=== PATIENT | female | born 1985 | race Caucasian/White ===

== ENCOUNTER 2017-02-26 00:10 | Inpatient (IN) | payer MEDICAID, SELFPAY ==
[2017-02-26] MEDS ORDERED: Carboprost Tromethamine 250 MCG/1 ML Amp IM PRN (00:16)
[2017-02-26] MEDS ORDERED: Methylergonovine 0.2 MG/1 ML Amp IM PRN (00:16)
[2017-02-26] MEDS ORDERED: Lidocaine 1% 30 ML SDV INJECT PRN (00:16)
[2017-02-26] MEDS ORDERED: fentaNYL 100 MCG/2 ML SDV IVPUSH PRN (00:16)
[2017-02-26] MEDS ORDERED: Acetaminophen 325 MG Tab PO PRN (00:16)
[2017-02-26] MEDS ORDERED: Ondansetron 4 MG/2 ML SDV IV PRN (00:16)
[2017-02-26] MEDS ORDERED: Misoprostol 400 MCG (4 X 100 MCG TAB) RECTAL PRN (00:16)
[2017-02-26] MEDS ORDERED: Sodium Chloride 0.9% 10 ML Syringe FLUSH PRN ×3 (00:16→11:33)
[2017-02-26] MEDS ORDERED: Lactated Ringers 500 ML IV ONE (00:16)
[2017-02-26] MEDS ORDERED: Misoprostol 25 MCG (1/4 of 100 MCG) Tab VAG PRN (00:20)
[2017-02-26] MEDS ORDERED: Oxytocin/Normal Saline 30 UNIT/500 ML BAG IV SCH ×2 (00:30→07:15)
[2017-02-26] MEDS ORDERED: Calcium Carbonate 500 MG Tab.Chew PO PRN (01:38)
[2017-02-26] MEDS: Lactated Ringers 1,000 ML IV SCH ×4 (05:05→07:27)
[2017-02-26] MEDS ORDERED: fentaNYL 100 MCG/2 ML SDV ONE (05:32)
--- NOTE | 2017-02-26 06:09 | PCM.PRNOTE ---
- Free Text/Narrative Note: Called to place intrathecal for pain management in this laboring patient. After consent obtained, and monitors on, proceeded. With patient in sitting position, sterile prep/drape. Skin wheal at L3-4 with 1 % lidocaine. LP X 1 at L3-4 with 25 gauge pencan spinal needle via 20 gauge introducer. Positive free flowing clear CSF, but initially unable to aspirate CSF. No heme, no paresthesia. After advancing spinal needle slightly, able to aspirate, so injected 20 mcg Sufenta, plus 30 mcg of Fentanyl plus 6 mg (0.8 ml ) mpf, hyperbaric spinal 0.75% marcaine, plus 0.4ml preservative free normal saline with epinephrine wash. SBP remained stable and FHT's remained stable. Pt reported no discomfort with subsequent contractions.
--- NOTE | 2017-02-26 06:38 | PCM.LDHP ---
L&D History of Present Illness - General Date of Service: 02/26/17 Admit Problem/Dx: Patient Status Order with Admit Dx/Problem 02/26/17 00:16 Patient Status [ADT] Routine Admission Diagnosis/Problem Admission Diagnosis/Problem care Source of Information: Patient - History of Present Illness Introduction:: 32-year-old at 39w1d presents for elective induction of labor. Patient has to rock picker some of her children on 02/28/17 in the morning and has no one to watch her children. She transferred care to [facility] on 02/10/17. She previously received her care at [facility] in [place], [place]. Her has been uncomplicated. She denies any complications with her previous pregnancies with the exception of a precipitous delivery with her 5th delivery. She has no concerns today. Baby has been active. Some [place] contractions but nothing regular. No vaginal bleeding or leaking of fluid. - Related Data Allergies/Adverse Reactions: Allergies Allergy/AdvReac Type Severity Reaction Status Date / Time desipramine Allergy Other Verified 02/26/17 01:37 Past Medical History - Past Health History Medical/Surgical History: Denies Medical/Surgical History HEENT History: Reports: Other (See Below) Other HEENT History: myopia Gastrointestinal History: Reports: Other (See Below) Other Gastrointestinal History: bad heartburn EKG TECH History: Reports: Polycystic Ovaries Psychiatric History: Reports: Anxiety, Depression, Other (See Below) Other Psychiatric History: borderline personality disorder neurotic excoriations Hematologic History: Reports: Other (See Below) Other Hematologic History: platelets currenlty 112 Other Immunologic History: had chicken pox - Infectious Disease History Infectious Disease History: Reports: Chicken Pox Social & Family History - Family History Family Medical History: Noncontributory Cardiac: Reports: Hypertension (Mother/Father/Brother) : Reports: Other (See Below) (Breast cancer--Maternal grandmother) Neurological: Reports: CVA (Paternal grandmother) Psychiatric: Reports: Depression (Brother) - Tobacco Use Smoking Status *Q: Former Smoker Used Tobacco, but Quit: No Second Hand Smoke Exposure: No - Caffeine Use Caffeine Use: Reports: None - Recreational Drug Use Recreational Drug Use: No H&P Review of Systems - Review of Systems: Review Of Systems: See Below General: Reports: No Symptoms HEENT: Reports: No Symptoms Pulmonary: Reports: No Symptoms Cardiovascular: Reports: No Symptoms Gastrointestinal: Reports: No Symptoms Genitourinary: Reports: No Symptoms Musculoskeletal: Reports: No Symptoms L&D Exam - Exam Exam: See Below - Vital Signs Vital Signs: Last Vital Signs Temp 36.9 C 02/26/17 00:29 Pulse 100 02/26/17 00:30 Resp 18 02/26/17 00:29 BP 136/86 02/26/17 00:30 Pulse Ox Weight: 54.431 kg - OB Specific Contraction Duration (sec): 50-100 Contraction Frequency (min): irregular Contraction Intensity: denies ctn Heart Tones per Min: 130 Heart Rate (FHR) Variability: Moderate (6-25 bmp) Presentation: Vertex - Howard Score Howard Score Cervix Position: Midposition Howard Score Consistency: Soft Howard Score Effacement: 31-50% Howard Score Dilation: 1-2 cm Howard Score 's Station: -2 Howard Score Total: 6 - Exam General: Alert, Oriented HEENT: Mucosa Moist & [place] Lungs: Clear to Auscultation, Normal Respiratory Effort Cardiovascular: Regular Rate, Regular Rhythm. No: Systolic Murmur, Diastolic Murmur Abdomen: Normal Bowel Sounds Extremities: Normal Inspection. No: Edema Skin: Warm, Dry, Intact - Patient Data Lab Results last 24 hrs: Laboratory Results - last 24 hr 02/26/17 02/26/17 Range/Units 00:45 01:40 WBC 8.0 (5.0-10.0) 10^3/uL RBC 3.50 L (4.2-5.4) 10^6/uL Hgb 10.8 L (12.0-16.0) g/dL Hct 32.9 L (37.0-47.0) % MCV 94.0 (80-100) fL MCH 30.9 (27.0-34.0) pg MCHC 32.8 L (33.0-35.0) g/dL Plt Count 112 L (150-450) 10^3/uL Urine Opiates Screen Negative (NEGATIVE) Ur Oxycodone Screen Negative (NEGATIVE) Urine Methadone Screen Negative (NEGATIVE) Ur Barbiturates Screen Negative (NEGATIVE) U Tricyclic Antidepress Negative (NEGATIVE) Ur Phencyclidine Scrn Negative (NEGATIVE) Ur Amphetamine Screen Negative (NEGATIVE) U Methamphetamines Scrn Negative (NEGATIVE) Urine MDMA Screen Negative (NEGATIVE) U Benzodiazepines Scrn Negative (NEGATIVE) Urine Cocaine Screen Negative (NEGATIVE) U Marijuana (THC) Screen Negative (NEGATIVE) Result Diagrams: 02/26/17 00:45 - Problem List (1) care in third trimester SNOMED Code(s): 841804985, 35330845, 11945624, 386105189, 615291140 ICD Code: Z34.93 - ENCNTR FOR SUPRVSN OF NORMAL PREG, UNSP, THIRD TRIMESTER Status: Acute Current Visit: Yes (2) Multigravida in third trimester SNOMED Code(s): 208976844, 829620651 ICD Code: Z34.83 - ENCOUNTER FOR SUPRVSN OF NORMAL , THIRD TRIMESTER Status: Acute Current Visit: Yes (3) Thrombocytopenia affecting SNOMED Code(s): 706808102 ICD Code: O99.119 - OTH DIS OF BLD/BLD-FORM ORG/IMMUN MECHNSM COMP PREG,UNSP TRI; D69.6 - THROMBOCYTOPENIA, UNSPECIFIED Status: Acute Current Visit: Yes Problem List Initiated/Reviewed/Updated: Yes Orders Last 24hrs: Active Orders 24 hr Category Date Time Status Communication Order [RC] ASDIRECTED Care 02/26/17 00:16 Active Communication Order [RC] ASDIRECTED Care 02/26/17 00:20 Active Communication Order [RC] ASDIRECTED Care 02/26/17 00:20 Active Communication Order [RC] ASDIRECTED Care 02/26/17 00:20 Active Communication Order [RC] ASDIRECTED Care 02/26/17 00:20 Active Heart Tones [RC] PER UNIT ROUTINE Care 02/26/17 00:16 Active Monitoring [RC] PER UNIT ROUTINE Care 02/26/17 00:20 Active Notify Provider Vital Signs OB [RC] ASDIRECTED Care 02/26/17 00:16 Active Notify Provider [RC] PRN Care 02/26/17 00:16 Active Notify Provider [RC] PRN Care 02/26/17 00:20 Active Notify Provider [RC] PRN Care 02/26/17 00:20 Active Notify Provider [RC] STAT Care 02/26/17 00:20 Active Peripheral IV Care [RC] . DIRECTED Care 02/26/17 00:21 Active Pump Management, Intrathecal [RC] ASDIRECTED Care 02/26/17 00:16 Active Up ad Katiana [RC] ASDIRECTED Care 02/26/17 00:16 Active Vaginal Exam [RC] PRN Care 02/26/17 00:20 Active Vital Signs [RC] PER UNIT ROUTINE Care 02/26/17 00:16 Active Clear Liquid Diet [DIET] Diet 02/26/17 Breakfast Active Acetaminophen [Tylenol] Med 02/26/17 00:16 Active 650 mg PO Q4H PRN Calcium Carbonate [Tums] Med 02/26/17 01:38 Active 500 mg PO Q2H PRN Carboprost Tromethamine [Hemabate DS] Med 02/26/17 00:16 Active 250 mcg IM ASDIRECTED PRN Lactated Ringers [Ringers, Lactated] 1,000 ml Med 02/26/17 00:30 Active IV ASDIRECTED Lidocaine 1% [Xylocaine-MPF 1%] Med 02/26/17 00:16 Active 10 ml INJECT ASDIRECTED PRN Methylergonovine [Methergine] Med 02/26/17 00:16 Active 0.2 mg IM ASDIRECTED PRN Misoprostol [Cytotec] Med 02/26/17 00:20 Active 25 mcg VAG Q4H PRN Misoprostol [Cytotec] Med 02/26/17 00:16 Active 800 mcg RECTAL ASDIRECTED PRN Ondansetron [Zofran] Med 02/26/17 00:16 Active 4 mg IV Q4H PRN Oxytocin/Normal Saline [Pitocin in NS 30 UNIT/500 ML] Med 02/26/17 00:30 Active 30 unit in 500 ml IV TITRATE Sodium Chloride 0.9% [Saline Flush] Med 02/26/17 00:16 Active 10 ml FLUSH ASDIRECTED PRN Sodium Chloride 0.9% [Saline Flush] Med 02/26/17 00:20 Active 10 ml FLUSH ASDIRECTED PRN fentaNYL [Sublimaze] Med 02/26/17 00:16 Active 50 mcg IVPUSH Q1H PRN Peripheral IV Insertion Adult [OM.PC] Urgent Oth 02/26/17 00:20 Ordered Saline Lock Insert [OM.PC] Routine Oth 02/26/17 00:16 Ordered Resuscitation Status Routine Resus Stat 02/26/17 00:16 Ordered Medication Orders Acetaminophen (Tylenol) 650 mg PO Q4H PRN PRN Reason: Pain (Mild 1-3) and fever Calcium Carbonate/Glycine (Tums) 500 mg PO Q2H PRN PRN Reason: Heartburn Last Admin: 02/26/17 01:50 Dose: 500 mg Carboprost Tromethamine (Hemabate Ds) 250 mcg IM ASDIRECTED PRN PRN Reason: HEMORRHAGE Fentanyl (Sublimaze) 50 mcg IVPUSH Q1H PRN PRN Reason: Pain (moderate 4-6) Lactated Ringer's (Ringers, Lactated) 1,000 mls @ 125 mls/hr IV ASDIRECTED ANDREI Oxytocin/Sodium Chloride (Pitocin In Ns 30 Unit/500 Ml) 30 unit in 500 mls @ 2 mls/hr IV TITRATE ANDREI; 2 MUNITS/MIN PRN Reason: Protocol Lidocaine HCl (Xylocaine-Mpf 1%) 10 ml INJECT ASDIRECTED PRN PRN Reason: Perineal Repair Methylergonovine Maleate (Methergine) 0.2 mg IM ASDIRECTED PRN PRN Reason: Hemorrhage Misoprostol (Cytotec) 800 mcg RECTAL ASDIRECTED PRN PRN Reason: Hemorrhage Misoprostol (Cytotec) 25 mcg VAG Q4H PRN PRN Reason: cervical ripening Stop: 02/27/17 04:21 Last Admin: 02/26/17 01:54 Dose: 25 mcg Ondansetron HCl (Zofran) 4 mg IV Q4H PRN PRN Reason: Nausea/Vomiting Sodium Chloride (Saline Flush) 10 ml FLUSH ASDIRECTED PRN PRN Reason: Keep Vein Open Sodium Chloride (Saline Flush) 10 ml FLUSH ASDIRECTED PRN PRN Reason: Keep Vein Open Assessment/Plan Comment:: 32-year-old at 39w1d presenting for induction of labor 1. Admit to L&D 2. Cytotec for cervical ripening, followed by pitocin if needed 3. AROM when able 4. Anticipate vaginal delivery. Expectant management. Mary Mcmillan MD
[2017-02-26] MEDS ORDERED: Docusate Sodium 100 MG Cap PO PRN (11:33)
[2017-02-26] MEDS ORDERED: Oxytocin 10 Units/1 ML SDV IM PRN (11:33)
[2017-02-26] MEDS ORDERED: Simethicone 80 MG Tab.Chew PO PRN (11:33)
[2017-02-26] MEDS ORDERED: Benzocaine/Menthol 20%-0.5% Spray 56 GM Canister TOP PRN (11:33)
--- NOTE | 2017-02-26 12:03 | PCM.DEL ---
L & D Note - General Info Date of Service: 02/26/17 Mother's Due Date: 03/04/17 - Delivery Note Labor: augmented by ARM Cervical Ripening Method: Oxytocin Delivery Outcome: Livebirth Delivery Method: Spontaneous Vaginal Delivery Presentation: Left Occiput Anterior (RICHELLE) Nuchal cord: none Anesthesia Type: Intrathecal Amniotic Fluid Description: Clear Episiotomy Type: None Laceration: none Placenta: intact, spontaneous Cord: 3 vessels Estimated blood loss: 125 Resuscitation needed: No Delivery Comments (Free Text/Narrative):: 32-year-old presented to labor and delivery for elective induction of labor at 39 weeks 1 day. Cytotec was placed around 0100. At 0500, patient was checked and was found to be 7 cm dilated. At that time she did desire an intrathecal. This was administered. Patient was checked around 0600 and was found to still be a 7 cm dilated. Membranes were artificially ruptured for clear fluid. Over the next 3 and half hours, patient progressed to complete dilation. She pushed for approximately 5 minutes and delivered a viable female infant. A couple minutes later, the placenta delivered spontaneously and was noted to be intact. Perineum was intact without any lacerations. Uterine massage revealed a firm uterus, and bleeding was noted to be appropriate. There were no immediate complications. Induction Criteria - Howard Score Howard Score Dilation: 1-2 cm Howard Score Effacement: 40-50% Howard Score 's Station: -2 Howard Score Consistency: Soft Howard Score Cervix Position: Midposition Howard Score Total: 6 Howard Score Presenting Part: Reports: Cephalic - Induction Gestational Age >/= 39 wks: Yes Medical indication: Elective induction for social reasons (the patient needs to pick out hand her children from her ex- on 02/28/17 and after they arrived, she will not have anybody to watch that if she went into labor) Estimated pelvis: Reports: Adequate Reassuring monitoring strip: Yes Absence of tachy systole: Yes - Augmentation Estimated Pelvis: Reports: Adequate weight estimated:: Reports: AGA Reassuring monitoring strip: Yes Absence of tachy systole: Yes - Patient Data Vitals - most recent: Last Vital Signs Temp 36.6 C 02/26/17 08:30 Pulse 69 02/26/17 09:15 Resp 18 02/26/17 09:15 BP 146/82 H 02/26/17 09:15 Pulse Ox 99 02/26/17 06:10 Weight - most recent: 54.431 kg Lab Results last 24 hrs: Laboratory Results - last 24 hr 02/26/17 02/26/17 Range/Units 00:45 01:40 WBC 8.0 (5.0-10.0) 10^3/uL RBC 3.50 L (4.2-5.4) 10^6/uL Hgb 10.8 L (12.0-16.0) g/dL Hct 32.9 L (37.0-47.0) % MCV 94.0 (80-100) fL MCH 30.9 (27.0-34.0) pg MCHC 32.8 L (33.0-35.0) g/dL Plt Count 112 L (150-450) 10^3/uL Urine Opiates Screen Negative (NEGATIVE) Ur Oxycodone Screen Negative (NEGATIVE) Urine Methadone Screen Negative (NEGATIVE) Ur Barbiturates Screen Negative (NEGATIVE) U Tricyclic Antidepress Negative (NEGATIVE) Ur Phencyclidine Scrn Negative (NEGATIVE) Ur Amphetamine Screen Negative (NEGATIVE) U Methamphetamines Scrn Negative (NEGATIVE) Urine MDMA Screen Negative (NEGATIVE) U Benzodiazepines Scrn Negative (NEGATIVE) Urine Cocaine Screen Negative (NEGATIVE) U Marijuana (THC) Screen Negative (NEGATIVE) Med Orders - Current: Current Medications Acetaminophen (Tylenol) 650 mg PO Q4H PRN PRN Reason: Pain (Mild 1-3) and fever Benzocaine/Menthol (Dermoplast Pain Relief Saunemin) 0 gm TOP Q4H PRN PRN Reason: Perineal comfort measures Calcium Carbonate/Glycine (Tums) 500 mg PO Q2H PRN PRN Reason: Heartburn Last Admin: 02/26/17 01:50 Dose: 500 mg Carboprost Tromethamine (Hemabate Ds) 250 mcg IM ASDIRECTED PRN PRN Reason: HEMORRHAGE Docusate Sodium (Colace) 100 mg PO BID PRN PRN Reason: Constipation Oxytocin/Sodium Chloride (Pitocin In Ns 30 Unit/500 Ml) 30 unit in 500 mls @ 2 mls/hr IV TITRATE ANDREI; 2 MUNITS/MIN PRN Reason: Protocol Oxytocin/Sodium Chloride (Pitocin In Ns 30 Unit/500 Ml) 30 unit in 500 mls @ 2 mls/hr IV TITRATE ANDREI; 2 MUNITS/MIN PRN Reason: Protocol Last Titration: 02/26/17 09:54 Dose: 250 mls/hr Ibuprofen (Motrin) 800 mg PO Q8H PRN PRN Reason: Mild Pain or Fever Methylergonovine Maleate (Methergine) 0.2 mg IM ASDIRECTED PRN PRN Reason: Hemorrhage Misoprostol (Cytotec) 800 mcg RECTAL ASDIRECTED PRN PRN Reason: Hemorrhage Misoprostol (Cytotec) 25 mcg VAG Q4H PRN PRN Reason: cervical ripening Stop: 02/27/17 04:21 Last Admin: 02/26/17 01:54 Dose: 25 mcg Oxytocin (Pitocin) 10 unit IM ONETIME PRN PRN Reason: Bleeding Prenat Multivit/Harding/Iron/Folic Ac ( Plus Iron) 1 each PO DAILY ANDREI Simethicone (Simethicone) 80 mg PO Q4H PRN PRN Reason: Gas Sodium Chloride (Saline Flush) 10 ml FLUSH ASDIRECTED PRN PRN Reason: Keep Vein Open Sodium Chloride (Saline Flush) 10 ml FLUSH ASDIRECTED PRN PRN Reason: Keep Vein Open Sodium Chloride (Saline Flush) 10 ml FLUSH ASDIRECTED PRN PRN Reason: Keep Vein Open Discontinued Medications Fentanyl (Sublimaze) 50 mcg IVPUSH Q1H PRN PRN Reason: Pain (moderate 4-6) Fentanyl (Sublimaze) Confirm Administered Dose 100 mcg .ROUTE .STK-MED ONE Stop: 02/26/17 05:33 Lactated Ringer's (Ringers, Lactated) 500 mls @ 999 mls/hr IV .BOLUS ONE Stop: 02/26/17 00:46 Lactated Ringer's (Ringers, Lactated) 1,000 mls @ 125 mls/hr IV ASDIRECTED ANDREI Last Admin: 02/26/17 07:27 Dose: 125 mls/hr Lidocaine HCl (Xylocaine-Mpf 1%) 10 ml INJECT ASDIRECTED PRN PRN Reason: Perineal Repair Ondansetron HCl (Zofran) 4 mg IV Q4H PRN PRN Reason: Nausea/Vomiting Sufentanil Citrate (Sufenta) Confirm Administered Dose 50 mcg .ROUTE .STK-MED ONE Stop: 02/26/17 05:33 - Problem List & Annotations (1) care in third trimester SNOMED Code(s): 481743044, 39543935, 90716452, 111697144, 970483492 Code(s): Z34.93 - ENCNTR FOR SUPRVSN OF NORMAL PREG, UNSP, THIRD TRIMESTER Status: Acute Current Visit: Yes (2) Multigravida in third trimester SNOMED Code(s): 463340376, 645324621 Code(s): Z34.83 - ENCOUNTER FOR SUPRVSN OF NORMAL , THIRD TRIMESTER Status: Acute Current Visit: Yes (3) Thrombocytopenia affecting SNOMED Code(s): 493581408 Code(s): O99.119 - OTH DIS OF BLD/BLD-FORM ORG/IMMUN MECHNSM COMP PREG,UNSP TRI; D69.6 - THROMBOCYTOPENIA, UNSPECIFIED Status: Acute Current Visit: Yes - Problem List Review Problem List Initiated/Reviewed/Updated: Yes - My Orders Last 24 Hours: My Active Orders 02/26/17 00:16 Heart Tones [RC] PER UNIT ROUTINE Pump Management, Intrathecal [RC] ASDIRECTED Up ad Katiana [RC] ASDIRECTED Vital Signs [RC] PER UNIT ROUTINE Acetaminophen [Tylenol] 650 mg PO Q4H PRN Carboprost Tromethamine [Hemabate DS] 250 mcg IM ASDIRECTED PRN Methylergonovine [Methergine] 0.2 mg IM ASDIRECTED PRN Misoprostol [Cytotec] 800 mcg RECTAL ASDIRECTED PRN Sodium Chloride 0.9% [Saline Flush] 10 ml FLUSH ASDIRECTED PRN Saline Lock Insert [OM.PC] Routine Resuscitation Status Routine 02/26/17 00:20 Communication Order [RC] ASDIRECTED Communication Order [RC] ASDIRECTED Communication Order [RC] ASDIRECTED Communication Order [RC] ASDIRECTED Monitoring [RC] PER UNIT ROUTINE Notify Provider [RC] PRN Notify Provider [RC] PRN Notify Provider [RC] STAT Vaginal Exam [RC] PRN Misoprostol [Cytotec] 25 mcg VAG Q4H PRN Sodium Chloride 0.9% [Saline Flush] 10 ml FLUSH ASDIRECTED PRN Peripheral IV Insertion Adult [OM.PC] Urgent 02/26/17 00:21 Peripheral IV Care [RC] . DIRECTED 02/26/17 00:30 Oxytocin/Normal Saline [Pitocin in NS 30 UNIT/500 ML] 30 unit in 500 ml IV TITRATE 02/26/17 01:38 Calcium Carbonate [Tums] 500 mg PO Q2H PRN 02/26/17 07:15 Oxytocin/Normal Saline [Pitocin in NS 30 UNIT/500 ML] 30 unit in 500 ml IV TITRATE 02/26/17 11:33 Vital Signs [RC] PFP Benzocaine/Menthol [Dermoplast Pain Relief Saunemin] See Dose Instructions TOP Q4H PRN Docusate Sodium [Colace] 100 mg PO BID PRN Ibuprofen [Motrin] 800 mg PO Q8H PRN Oxytocin [Pitocin] 10 unit IM ONETIME PRN Simethicone 80 mg PO Q4H PRN Sodium Chloride 0.9% [Saline Flush] 10 ml FLUSH ASDIRECTED PRN 02/26/17 11:34 Notify Provider Vital Signs OB [RC] ASDIRECTED Assess Lochia [WOMSER] Per Unit Routine Assess Uterine Involution [WOMSER] Per Unit Routine Breast Pump [WOMSER] Per Unit Routine Ice Therapy [OM.PC] Per Unit Routine Perineal Care [OM.PC] Per Unit Routine Saline Lock Insert [OM.PC] Urgent Sitz Bath [OM.PC] Per Unit Routine 02/26/17 Lunch Regular Diet [DIET] 02/27/17 09:00 Vit with Ca/FA/Iron [ Plus Iron] 1 each PO DAILY - Assessment Assessment:: 32-year-old now status post normal spontaneous vaginal delivery - Plan Plan:: 1. Initiate routine cares 2. Patient plans to bottlefeed 3. For thrombocytopenia, we'll repeat at 6 week check 4. Anticipate 24-hour discharge per patient request Mary Mcmillan MD
--- NOTE | 2017-02-26 13:01 | PCM.POSTAN ---
POST ANESTHESIA ASSESSMENT - MENTAL STATUS Mental Status: alert - VITAL SIGNS Pulse Rate: 52 Resp Rate: 18 Blood Pressure: 120/76 Temperature: 36.6 C - RESPIRATORY Respiratory Status: respiratory rate WNL - CARDIOVASCULAR CV Status: slow pulse rate - GASTROINTESTINAL GI Status: no symptoms - POST OP HYDRATION Hydration Status: adequate & stable (Pt in shower when I went to visit post anesthesia. Nurse stated that pt without c/o. No PDPH, no c/o back pain. No post anesthesia complications noted.)
[2017-02-26] MEDS ORDERED: fentaNYL 100 MCG/2 ML SDV ITHECAL ONE (16:11)
[2017-02-26] MEDS: Ibuprofen 800 MG Tab PO PRN (16:18)
[2017-02-26 22:00] VITALS: BP 115/66
[2017-02-27] MEDS: Ibuprofen 800 MG Tab PO PRN (00:23)
[2017-02-27] MEDS ORDERED: Prenatal Multivitamin with Calcium/Folic Acid/Iron Tab PO SCH (09:00)
--- NOTE | 2017-02-27 10:45 | PCM.DCSUM1 ---
[id number] and delivery on 02/26/17 for elective induction of labor at 39 weeks 1 day gestation. She underwent normal spontaneous vaginal delivery on 02/26/17 and delivered a viable female with Apgars of 8 and 9 and without complication. Perineum was intact. There were no complications with delivery. Patient was noted to have thrombocytopenia with a platelet count of 112,000 upon admission. Brief History: Patient transferred care to [facility] on 02/10/2017. Prior to this she had been receiving obstetric care in [place]. - Discharge Data Discharge Date: 02/27/17 Discharge Disposition: Home, Self-Care 01 Condition: Good - Discharge Diagnosis/Problem(s) (1) care in third trimester SNOMED Code(s): 014856682, [id number], [id number], [id number], [id number] ICD Code: Z34.93 - ENCNTR FOR SUPRVSN OF NORMAL PREG, UNSP, THIRD TRIMESTER Status: Acute (2) Multigravida in third trimester SNOMED Code(s): 269322008, 160937531 ICD Code: Z34.83 - ENCOUNTER FOR SUPRVSN OF NORMAL , THIRD TRIMESTER Status: Acute (3) Thrombocytopenia affecting SNOMED Code(s): 138366325 ICD Code: O99.119 - OTH DIS OF BLD/BLD-FORM ORG/IMMUN MECHNSM COMP PREG,UNSP TRI; D69.6 - THROMBOCYTOPENIA, UNSPECIFIED Status: Acute (4) (normal spontaneous vaginal delivery) SNOMED Code(s): 22112231 ICD Code: O80 - ENCOUNTER FOR FULL-TERM UNCOMPLICATED DELIVERY Status: Acute - Patient Summary/Data Operative Procedure(s) Performed: None Complications: None Labs Pending at D/C: None Recommended Follow-up Testing/Procedures: None Planned Operative Procedure(s) after DC: None Hospital Course: Hospital course has been unremarkable. Patient is tolerating a normal diet without difficulty. She is ambulating without dizziness or lightheadedness. She is urinating without pain or difficulty. She has passed gas but has not yet had a bowel movement. She has no complaints today. - Patient Instructions Diet: Regular Diet as Tolerated Activity: Apply Ice, As Tolerated Driving: May Drive Today Showering/Bathing: May Shower Notify Provider of: Fever, Increased Pain, Nausea and/or Vomiting - Discharge Plan Home Medications: Home Meds Acetaminophen [Tylenol] 650 mg PO Q4H PRN #0 tablet 02/27/17 [Rx] Docusate Sodium [Colace] 100 mg PO BID PRN #0 cap 02/27/17 [Rx] Ibuprofen [IJD: Ibuprofen] 800 mg PO Q8H PRN #0 tablet 02/27/17 [Rx] Vit with Ca/FA/Iron [ Plus Iron] 1 each PO DAILY tablet [Rx] Patient Handouts: Home Care Instructions for Mom, Vaginal Delivery, Care After Referrals: Mary Mcmillan MD [Primary Care Provider] - (Need to schedule 6 week follow-up with Dr. Mcmillan.) - Discharge Summary/Plan Comment DC Time >30 min.: No Discharge Summary/Plan Comment: Discharge home today. Follow-up in 6 weeks for routine exam. Reasons to return sooner or present to the emergency department were discussed with the patient. Mary Mcmillan MD - General Info Date of Service: 02/27/17 Subjective Update: Patient is day #1 after normal spontaneous vaginal delivery. She is tolerating a general diet. She is ambulating without difficulty. She is urinating. She has passed gas but has not yet had a bowel movement. Vaginal bleeding has improved significantly. She has no concerns today. No concerns per nursing. Functional Status: Reports: pain controlled, tolerating diet, ambulating, urinating. Denies: new symptoms - Review of Systems General: Reports: No Symptoms HEENT: Reports: no symptoms Pulmonary: Reports: no symptoms Cardiovascular: Reports: No Symptoms Gastrointestinal: Reports: No symptoms Genitourinary: Reports: no symptoms Musculoskeletal: Reports: no symptoms - Patient Data Vitals - Most Recent: Last Vital Signs Temp 37.1 C 02/26/17 20:00 Pulse 51 L 02/26/17 20:00 Resp 20 02/26/17 20:00 BP 115/66 02/26/17 20:00 Pulse Ox 99 02/26/17 20:00 Weight - Most Recent: 54.431 kg Med Orders - Current: Current Medications Acetaminophen (Tylenol) 650 mg PO Q4H PRN PRN Reason: Pain (Mild 1-3) and fever Benzocaine/Menthol (Dermoplast Pain Relief [place]) 0 gm TOP Q4H PRN PRN Reason: Perineal comfort measures Calcium Carbonate/Glycine (Tums) 500 mg PO Q2H PRN PRN Reason: Heartburn Last Admin: 02/26/17 01:50 Dose: 500 mg Carboprost Tromethamine (Hemabate Ds) 250 mcg IM ASDIRECTED PRN PRN Reason: HEMORRHAGE Docusate Sodium (Colace) 100 mg PO BID PRN PRN Reason: Constipation Oxytocin/Sodium Chloride (Pitocin In Ns 30 Unit/500 Ml) 30 unit in 500 mls @ 2 mls/hr IV TITRATE ANDREI; 2 MUNITS/MIN PRN Reason: Protocol Oxytocin/Sodium Chloride (Pitocin In Ns 30 Unit/500 Ml) 30 unit in 500 mls @ 2 mls/hr IV TITRATE ANDREI; 2 MUNITS/MIN PRN Reason: Protocol Last Titration: 02/26/17 12:06 Dose: Infused Ibuprofen (Motrin) 800 mg PO Q8H PRN PRN Reason: Mild Pain or Fever Last Admin: 02/27/17 00:23 Dose: 800 mg Methylergonovine Maleate (Methergine) 0.2 mg IM ASDIRECTED PRN PRN Reason: Hemorrhage Misoprostol (Cytotec) 800 mcg RECTAL ASDIRECTED PRN PRN Reason: Hemorrhage Oxytocin (Pitocin) 10 unit IM ONETIME PRN PRN Reason: Bleeding Prenat Multivit/[place]/Iron/Folic Ac ( Plus Iron) 1 each PO DAILY ANDREI Simethicone (Simethicone) 80 mg PO Q4H PRN PRN Reason: Gas Sodium Chloride (Saline Flush) 10 ml FLUSH ASDIRECTED PRN PRN Reason: Keep Vein Open Sodium Chloride (Saline Flush) 10 ml FLUSH ASDIRECTED PRN PRN Reason: Keep Vein Open Sodium Chloride (Saline Flush) 10 ml FLUSH ASDIRECTED PRN PRN Reason: Keep Vein Open Discontinued Medications Fentanyl (Sublimaze) 50 mcg IVPUSH Q1H PRN PRN Reason: Pain (moderate 4-6) Fentanyl (Sublimaze) Confirm Administered Dose 100 mcg .ROUTE .STK-MED ONE Stop: 02/26/17 05:33 Fentanyl (Sublimaze) 30 mcg ITHECAL .STK-MED ONE Stop: 02/26/17 16:12 Lactated Ringer's (Ringers, Lactated) 500 mls @ 999 mls/hr IV .BOLUS ONE Stop: 02/26/17 00:46 Last Admin: 02/26/17 14:07 Dose: Not Given Lactated Ringer's (Ringers, Lactated) 1,000 mls @ 125 mls/hr IV ASDIRECTED ANDREI Last Admin: 02/26/17 07:27 Dose: 125 mls/hr Lidocaine HCl (Xylocaine-Mpf 1%) 10 ml INJECT ASDIRECTED PRN PRN Reason: Perineal Repair Misoprostol (Cytotec) 25 mcg VAG Q4H PRN PRN Reason: cervical ripening Stop: 02/27/17 04:21 Last Admin: 02/26/17 01:54 Dose: 25 mcg Ondansetron HCl (Zofran) 4 mg IV Q4H PRN PRN Reason: Nausea/Vomiting Sufentanil Citrate (Sufenta) Confirm Administered Dose 50 mcg .ROUTE .STK-MED ONE Stop: 02/26/17 05:33 Sufentanil Citrate (Sufenta) 20 mcg ITHECAL .STK-MED ONE Stop: 02/26/17 16:12 - Exam General: Reports: alert, oriented Lungs: Reports: Clear to auscultation, Normal respiratory effort Cardiovascular: Reports: Regular Rate, Regular Rhythm, No Murmurs Abdomen: Reports: bowel sounds present, soft, no tenderness, no distension Back Exam: Reports: Normal Inspection Extremities: Reports: no edema Skin: Reports: warm, dry, intact *Q Meaningful Use (DIS) - VTE *Q VTE Criteria *Q: - Stroke *Q Stroke Criteria *Q: - AMI *Q AMI Criteria *Q:
== END 2017-02-27 12:05 | disposition home or self-care (01) | DRG 775 ==
LOC: DL.OB 00:10 → UNDOADMOB 00:10 → DL.OB 09:32 → OBSVTOIN 09:32
PROVIDERS: ADMIT Family Medicine; ATTEND Family Medicine
PROC: 10E0XZZ Delivery of Products of Conception, External Approach (ICD-10-PCS; principal; 2017-02-26)
PROC: 3E0P7GC Introduction of Other Therapeutic Substance into Female Reproductive, Via Natural or Artificial Opening (ICD-10-PCS; 2017-02-26)
PROC: 10907ZC Drainage of Amniotic Fluid, Therapeutic from Products of Conception, Via Natural or Artificial Opening (ICD-10-PCS; 2017-02-26)
DX: O99.12 Other diseases of the blood and blood-forming organs and certain disorders involving the immune mechanism complicating childbirth (principal); O09.43 Supervision of pregnancy with grand multiparity, third trimester; Z3A.39 39 weeks gestation of pregnancy; Z37.0 Single live birth
CPT/HCPCS: 01967; 36415; 80305; 85027; A9270-GY; J2590; J3010; J7120